=== PATIENT | male | born 1975 | race Two or more races ===

== ENCOUNTER → 2017-06-11 | Emergency (ER) | payer OTHER ==
[~2017-06-11] VITALS: Ht 175.3 cm; Wt 81.6 kg
[~2017-06-11] MED LIST: DIOVAN160 M1
== END | disposition home or self-care (01) ==
LOC: ER 15:52
DX: K64.4 Residual hemorrhoidal skin tags (principal); K60.2 Anal fissure, unspecified

== ENCOUNTER 2024-11-25 07:00 | Day surgery (SDC) | payer OTHER ==
[2024-11-25] MEDS ORDERED: MIDAZOLAM HCL 2 MG/2 ML VIAL IV ONE (10:00)
[2024-11-25] MEDS ORDERED: DIPHENHYDRAMINE HCL 50 MG/ML VIAL 1ML IV ONE (10:00)
[2024-11-25] MEDS ORDERED: fentaNYL CITRATE 50 MCG/ML AMPUL IV PUSH ONE (10:00)
[2024-11-25] MEDS ORDERED: FLUMAZENIL 0.5 MG/5 ML ML IV STA (10:16)
== END 2024-11-25 11:35 | disposition home or self-care (01) ==
LOC: AMB-ENDOS 07:00
PROVIDERS: ATTEND Colon & Rectal Surgery
DX: D12.2 Benign neoplasm of ascending colon (principal); K63.5 Polyp of colon